=== PATIENT | female | born 1960 | race Caucasian/White ===

== ENCOUNTER 2020-05-02 07:33 | Outpatient (CLI) | payer OTHER, SELFPAY ==
--- NOTE | 2020-05-02 07:39 | MM_ITS ---
WS: [id number] Bilateral screening digital mammogram, 05/02/2020 Clinical Data: SCREENING Comparison: 04/30/2019, 04/27/2018, 04/26/2017, 04/20/2016, 04/16/2015, 08/07/2013, 04/18/2012, 1, 02/23/2010, 10/29/2008. Findings: The breast parenchymal pattern shows stranding density No spiculated masses or clustered calcificatio ns are seen. There are no secondary signs of carcinoma. Mole markers are noted on both breasts. MM/[id number] Impression: 1. Negative bilateral mammogram unchanged. 2. Recommend annual screening mammograms. BIRADS: 1-Negative FOLLOW UP: 1 Year Follow-up The CAD wash test checker was used.
== END 2020-05-02 07:34 | disposition home or self-care (01) ==
LOC: RADSHAW 07:38
PROVIDERS: Family Provider Family Medicine; PCP Family Medicine; Visit Provider Family Medicine
DX: Z12.31 Encounter for screening mammogram for malignant neoplasm of breast (principal)
CPT/HCPCS: 77067

== ENCOUNTER 2021-05-05 08:42 | Outpatient (CLI) | payer OTHER, SELFPAY ==
--- NOTE | 2021-05-05 08:48 | MM_ITS ---
WS: [id number] Exam: [id number] Date/Time of Exam: 05/05/2021 8:48 AM Reason For Exam: SCREENING VIEWS: MLO and CC views both breasts. Comparison made with prior exam of 05/02/2020 and 04/27/2018. Findings: There was no sign of mass, architectural distortion or suspicious calcification in either breast. Ve [place] dense MM/[place] [id number] Impression: BI-RADS: 2-Benign FOLLOW-UP: 1 Year Follow-up This mammogram was also analyzed by the Computer Aided Detection System [employer].
== END 2021-05-05 08:43 | disposition home or self-care (01) ==
LOC: RADSHAW 08:47
PROVIDERS: PCP Family Medicine; Visit Provider Family Medicine
DX: Z12.31 Encounter for screening mammogram for malignant neoplasm of breast (principal)
CPT/HCPCS: 77067

== ENCOUNTER 2022-05-28 10:53 | Outpatient (CLI) | payer OTHER, SELFPAY ==
--- NOTE | 2022-05-28 13:03 | MM_ITS ---
WS: [id number] BILATERAL 3D TOMOSYNTHESIS DIGITAL SCREENING MAMMOGRAM WITH CAD CLINICAL INFORMATION: SCREENING HISTORY: Screening mammogram. No current complaints. COMPARISON: 2020 TECHNIQUE: Bilateral CC and MLO. FINDINGS: The breast are composed of extremely dense tissue, which can limit the detection of small underlying mass lesions. No suspicious focal mass, asymmetry, calcifications, or architectural distortion. No ev idence of malignancy. MM/[place] [id number] IMPRESSION: BI-RADS: 1-Negative FOLLOW UP: 1 Year Follow-up Recommend return to annual screening mammography.
== END 2022-05-28 10:54 | disposition home or self-care (01) ==
LOC: RAD 10:55
PROVIDERS: PCP Family Medicine; Visit Provider Family Medicine
DX: Z12.31 Encounter for screening mammogram for malignant neoplasm of breast (principal)
CPT/HCPCS: 77063; 77067

== ENCOUNTER → 2023-08-11 14:48 | Outpatient (BNVA) | payer OTHER, SELFPAY | PROVIDERS: PCP Family Medicine; Visit Provider Family Medicine | DX: K62.5 Hemorrhage of anus and rectum (principal); K64.8 Other hemorrhoids | CPT/HCPCS: 80053; 85025 ==

== ENCOUNTER 2023-10-31 08:10 | Outpatient (CLI) | payer OTHER, SELFPAY ==
--- NOTE | 2023-10-31 08:15 | MM_ITS ---
WS: [id number] SCREENING DIGITAL BREAST TOMOSYNTHESIS MAMMOGRAM WITH CAD HISTORY: SCREENING COMPARISON: 05/28/2022, 05/05/2021 Bilateral CC and MLO with tomosynthesis and synthetic mammography submitted. Computer aided detection analyzed. Breast composition: The breasts are extremely dense, which lowers the sensitivity of mammography. The re is an asymmetry in the LEFT breast central to the nipple and just medial to the nipple line. This is a partially obscured asymmetry and may be normal variant dense fibroglandular tissue but should be further evaluated. There are a few benign calcifications. MM/[id number] IMPRESSION: BI-RADS: 0-Incomplete: Need additional imaging evaluation FOLLOW UP: Need Additional Imaging LEFT breast: Spot compression views (CC and MLO). True ML. Ultrasound to follow if abnormality persists.
== END 2023-10-31 08:11 | disposition home or self-care (01) ==
LOC: RAD 08:11
PROVIDERS: PCP Family Medicine; Visit Provider Family Medicine
DX: Z12.31 Encounter for screening mammogram for malignant neoplasm of breast (principal); R92.343 Mammographic extreme density, bilateral breasts; N64.89 Other specified disorders of breast; R92.1 Mammographic calcification found on diagnostic imaging of breast
CPT/HCPCS: 77063; 77067

== ENCOUNTER 2023-12-19 10:56 | Outpatient (CLI) | payer OTHER, SELFPAY ==
--- NOTE | 2023-12-19 11:11 | MM_ITS ---
WS: [id number] ADDITIONAL VIEWS LEFT MAMMOGRAM with tomosynthesis. LEFT BREAST ULTRASOUND HISTORY: abnormal screening mammogram COMPARISON: 10/31/2023, 05/28/2022, 05/05/2021 LEFT MAMMOGRAM: Spot compression views and true ML with tomosynthesis and sympathetic mammography. Very dense fibroglandular tissue. On additional imaging there is no obvious mass identified. No disto rtion. The breast tissue is very dense. Additional ultrasound evaluation will be performed in the are as of increased density. LEFT BREAST ULTRASOUND 2-D and color Doppler imaging submitted. Very dense fibroglandular tissue throughout the LEFT breast at 3, 6 and 9:00. There are no masses or areas of shadowing. MM/[id number] IMPRESSION: BI-RADS: 2-Benign FOLLOW UP: 1 Year Follow-up No persistent abnormality in the LEFT breast in the areas of concern on the scr eening mammogram.
== END 2023-12-19 10:57 | disposition home or self-care (01) ==
PROVIDERS: PCP Family Medicine; Visit Provider Family Medicine
DX: R92.8 Other abnormal and inconclusive findings on diagnostic imaging of breast (principal); R92.333 Mammographic heterogeneous density, bilateral breasts
CPT/HCPCS: 76642; 77061; G0279

== ENCOUNTER 2024-10-28 10:35 | Emergency (ER) | payer MEDICARE, OTHER, SELFPAY ==
[2024-10-28 10:54] VITALS: BP 148/82; PULSE 89; RESP 18; TEMP 36.7; O2SAT 100; BMI 28.1
--- NOTE | 2024-10-28 11:15 | CTR_ITS ---
PROCEDURE INFORMATION: Exam: CT Head Without Contrast Exam date and time: 10/28/2024 11:28 AM Age: 64 years old Clinical indication: Altered mental status/memory loss TECHNIQUE: Imaging protocol: Computed tomography of the head without contrast. Radiation optimization: All CT scans at this facility use at least one of these dose optimization techniques: automated exposure control; mA and/or kV adjustment per patient size (includes targeted exams where dose is matched to clinical indication); or iterative reconstruction. COMPARISON: No relevant prior studies available. RADIATION DOSE METRICS: Total DLP (mGy-cm): 1011.1 FINDINGS: Brain: Normal. No hemorrhage. Unremarkable white matter. No mass effect. Cerebral ventricles: No ventriculomegaly. Paranasal sinuses: Visualized sinuses are unremarkable. No fluid levels. Mastoid air cells: Visualized mastoid air cells are well aerated. Bones: Unremarkable. No acute fracture. Soft tissues: Unremarkable. CT/CT head wo con* [id number] IMPRESSION: No acute intracranial finding.
[2024-10-28 12:00] LABS: Alanine Aminotransferase 11 U/L (0-33); Albumin Level 4.4 g/dL (3.5-5.2); Alkaline Phosphatase 135 U/L (35-105); Anion Gap 17.2 (5-19); Aspartate Amino Transferase 17 U/L (0-32); Blood Urea Nitrogen 11 mg/dL (8-23); Calcium 9.7 mg/dL (8.5-10.5); Carbon Dioxide 23 mmol/L (22-29); Chloride 101 mmol/L (98-107); Creatinine Clr Calc Pharmacy 69.2568; Globulin 3.3 g/dL (1.3-4.6); Glomerular Filtration Rate 123.8 mL/min (90-130); Glucose 116 mg/dL (65-115); Osmolality Calculated 284 mOsm/kg (285-295); Potassium 4.2 mmol/L (3.5-5.1); Sodium 137 mmol/L (136-145); Thyroid Stimulating Hormone 0.51 uIU/mL (0.27-4.20); Total Bilirubin 0.8 mg/dL (0.15-1.2); Total Protein 7.7 g/dL (6.6-8.7)
[2024-10-28 12:04] LABS: Basophils # 0.1 10^3/uL (0.0-0.1); Basophils % 0.7 %; Eosinophils % 0.4 %; Hematocrit 39.8 % (36-47); Lymphocytes # 0.9 10^3/uL (0.8-4.8); Lymphocytes % 11.4 %; Mean Corpuscular Hemoglobin 31.1 pg (27-33); Mean Corpuscular Volume 90.9 fl (85-98); Mean Platelet Volume 11.3 fL (7.4-10.4); Monocytes # 0.6 10^3/uL (0.2-0.9); Monocytes % 7.4 %; Neutrophils # 6.54 10^3/uL (1.8-7.7); Neutrophils % 79.6 %; Nucleated Red Blood Cells % 0 %; Platelet Count 257 10^3/cmm (157-399); Red Blood Count 4.38 10^6/uL (3.85-5.65); Red Cell Distribution Width 12.8 % (12.1-15.1); White Blood Count 8.22 10^3/uL (3.29-11.43)
[2024-10-28 12:06] LABS: Bilirubin Urine Negative (Negative); Blood Urine Negative (Negative); Glucose Urine UA Negative (Normal); Ketones Urine 1+ (Negative); Leukocyte Esterase Urine Negative (Negative); Nitrate Urine Negative (Negative); Protein Urine Negative (Negative); Specific Gravity, Urine 1.008 (1.005-1.030); Urine Appearance Clear (CLEAR); Urine Color Yellow (Yellow); Urobilinogen Urine 0.2 mg/dL (Negative)
[2024-10-28 12:06] LABS: Mean Corpuscular HGB Conc 34.2 g/dL (30-55)
[2024-10-28 12:11] LABS: Add Urine Microscopic? YES; Bacteria Urine None Seen /hpf; Hyaline Casts Urine 0-4 /lpf; RBC Urine 0-2 /hpf (0-2); Squamous Epithelial Cell Urine 0-5 /hpf (0-5); WBC Urine 0-5 /hpf (0-5)
[2024-10-28 13:30] VITALS: BP 149/90; PULSE 81; O2SAT 96
[2024-10-28 13:48] VITALS: BP 149/90; PULSE 81; O2SAT 96
--- NOTE | 2024-10-28 16:59 | ED_ITS ---
HPI - Weakness 2 General: Chief complaint: Weakness Stated complaint: confusion, weakness Time Seen by Provider: 10/28/24 11:03 History of Present Illness: This patient is a 64-year-old white female who presents to the emergency department stating that she has been feeling weak for 1 week. She has not been sleeping well. She does not feel ill. She states she recently retired which may have caused some anxiety. She denies having any chronic medical problems. Review of Systems 2 General: Reports: 10 or more systems reviewed and unremarkable except in HPI and below Narrative: Generalized weakness Psych: Reports: anxiety and sleeping less Physical Exam 2 Const: COMMON NORMALS: no acute distress, patient oriented x3 and no limitations GENERAL APPEARANCE: cooperative and comfortable HENMT: COMMON NORMALS: normocephalic, atraumatic, Normal nasal mucous membranes and turbinates present, moist oral mucous membranes and oropharynx normal HEAD & SCALP: normal to inspection, normocephalic and atraumatic F RENAY & SINUS: normal facial exam NOSE: Normal nasal mucous membranes and turbinates present Eye: COMMON NORMALS: Equal, round and reactive pupils present, EOMs intact bilaterally and conjunctivae normal GENERAL EYE: appearance normal, both eyes and all related structures CONJUNCTIVA: Yes conjunctivae normal PUPIL: Yes Equal, round and reactive pupils present Neck/C-Spine: COMMON NORMALS: supple and no JVD Chest: COMMONS NORMALS: normal inspection of the chest Resp: COMMON NORMALS: normal respiratory effort and clear to auscultation bilaterally AUSCULTATION: clear to auscultation bilaterally Cardio: COMMON NORMALS: no JVD, regular rate, regular rhythm, No gallops present (Cardio), No murmurs present (Cardio) and No rub (Cardio) RATE: r egular rate RHYTHM: regular rhythm GI: COMMON NORMALS: Normal to inspection, nondistended, normoactive bowel sounds present, Soft to palpation and non-tender AUSCULTATION: Yes normoactive bowel sounds PALPATION: Yes Soft to palpation : COMMON NORMALS: Yes no CVA tenderness BLADDER/KIDNEY EXAM: Yes no CVA tenderness Back/Pelvis: COMMON NORMALS: no CVA tenderness and thoracic and lumbar spine normal to inspection Extremity: COMMON NORMALS: normal to inspection Neuro: COMMON NORMALS: patient oriented x3 and CN's II-XII intact bilaterally Psych: COMMON NORMALS: mental status grossly normal, Normal thought process present and cooperative ATTITUDE: Yes Withdrawn affect present A CTIVITY/MOTOR BEHAVIOR: Yes psychomotor slowing MOOD & AFFECT: Yes depressed mood THOUGHT PROCESS: Normal thought process present THOUGHT CONTENT: Yes Normal thought content present ATTENTION/CONCENTRATION: Yes attention grossly intact MEMORY/COGNITION: Yes memory grossly intact Skin: COMMON NORMALS: no rashes or lesions noted, turgor normal and no jaundice GENERAL SKIN EXAM: no rashes or lesions noted and turgor normal Course 2 Vital Signs: Vital signs: Vital Signs Temperature 98.1 F 10/28/24 10:54 Pulse Rate 81 10/28/24 13:48 Respiratory Rate 18 10/28/24 10:54 Blood Pressure 149/90 10/28/24 13:48 Pulse Oximetry 96 10/28/24 13:48 Oxygen Delivery Me thod Room Air 10/28/24 10:54 MDM - Weakness Medical Decision Making Head CT was read by the radiologist as normal. CBC and CMP were normal. TSH is 0.51. Urine analysis normal. I think the patient's symptoms are likely secondary to depression and anxiety. I offered to start her on an antidepressant but she would rather follow-up with her primary care provider with possible referral to psychiatry. She was discharged in stable condition. Lab Data 10/28/24 11:23 10/28/24 11:[address] 10/28/24 11:15 IMPRESSION: No acute intracranial finding. Laboratory Results WBC 8.22 10^3/uL (3.29-11.43) 10/28/24 11:23 RBC 4.38 10^6/uL (3.85-5.65) 10/28/24 11:23 Hgb 13.60 g/dL (11.27-16.99) 10/28/24 11:23 Hct 39.8 % (36-47) 10/28/24 11:23 MCV 90.9 fl (85-98) 10/28/24 11:23 MCH 31.1 pg (27-33) 10/28/24 11:23 MCHC 34.2 g/dL (30-55) 10/28/24 11:23 RDW 12.8 % (12.1-15.1) 10/28/24 11:23 Plt Count 257 10^3/cmm (157-399) 10/28/24 11:23 MPV 11.3 fL (7.4-10.4) H 10/28/24 11:23 Neut % (Auto) 79.6 % 10/28/24 11:23 Lymph % (Auto) 11.4 % 10/28/24 11:23 [place] % (Auto) 7.4 % 10/28/24 11:23 Eos % (Auto) 0.4 % 10/28/24 11:23 Baso % (Auto) 0.7 % 10/28/24 11:23 Neut # (Auto) 6.54 10^3/uL (1.8-7.7) 10/28/24 11:23 Lymph # (Auto) 0.9 10^3/uL (0.8-4.8) 10/28/24 11:23 [place] # (Auto) 0.6 10^3/uL (0.2-0.9) 10/28/24 11:23 Eos # (Auto) 0.0 10^3/uL (0.0-0.8) 10/28/24 11:23 Baso # (Auto) 0.1 10^3/uL (0.0-0.1) 10/28/24 11:23 Nucleated RBC % (auto) 0 % 10/28/24 11:23 Nucleated RBCs # 0.0 /100WBC 10/28/24 11:23 Sodium 137 mmol/L (136-145) 10/28/24 11:23 Potassium 4.2 mmol/L (3.5-5.1) 10/28/24 11:23 Chloride 101 mmol/L (98-107) 10/28/24 11:23 Carbon Dioxide 23 mmol/L (22-29) 10/28/24 11:23 Anion Gap 17.2 (5-19) 10/28/24 11:23 BUN 11 mg/dL (8-23) 10/28/24 11:23 Creatinine 0.5 mg/dL (0.5-0.9) 10/28/24 11:23 GFR Calculation 123.8 mL/min (90-130) 10/28/24 11:23 Glucose 116 mg/dL (65-115) H 10/28/24 11:23 Calculated Osmolality 284 mOsm/kg (285-295) L 10/28/24 11:23 Calcium 9.7 mg/dL (8.5-10.5) 10/28/24 11:23 Total Bilirubin 0.8 mg/dL (0.15-1.2) 10/28/24 11:23 AST 17 U/L (0-32) 10/28/24 11:23 ALT 11 U/L (0-33) 10/28/24 11:23 Alkaline Phosphatase 135 U/L (35-105) H 10/28/24 11:23 Total Protein 7.7 g/dL (6.6-8.7) 10/28/24 11:23 Albumin 4.4 g/dL (3.5-5.2) 10/28/24 11:23 Globulin 3.3 g/dL (1.3-4.6) 10/28/24 11:23 TSH 0.51 uIU/mL (0.27-4.20) 10/28/24 11:23 Urine Color Yellow (Yellow) 10/28/24 11:42 Urine Appearance Clear (CLEAR) 10/28/24 11:42 Urine pH 6.0 (5-7) 10/28/24 11:42 Ur Specific [place] 1.008 (1.005-1.030) 10/28/24 11:42 Urine Protein Negative (Negative) 10/28/24 11:42 Urine Glucose (UA) Negative (Normal) 10/28/24 11:42 Urine Ketones 1+ (Negative) H 10/28/24 11:42 Urine Blood Negative (Negative) 10/28/24 11:42 Urine Nitrate Negative (Negative) 10/28/24 11:42 Urine Bilirubin Negative (Negative) 10/28/24 11:42 Urine Urobilinogen 0.2 mg/dL (Negative) 10/28/24 11:42 Ur Leukocyte Esterase Negative (Negative) 10/28/24 11:42 Urine RBC 0-2 /hpf (0-2) 10/28/24 11:42 Urine WBC 0-5 /hpf (0-5) 10/28/24 11:42 Ur Squamous Epith Cells 0-5 /hpf (0-5) 10/28/24 11:42 Amorphous Sediment Not Reportable 10/28/24 11:42 Urine Bacteria None seen /hpf (NONE) 10/28/24 11:42 Hyaline Casts 0-4 /lpf H 10/28/24 11:42 All radiology interpretation(s) finalized by discharge Discharge Plan Discharge Patient Disposition: Home Clinical Impression: Generalized weakness, Anxiety Condition: Stable Prescriptions: No Action No Known Home Medications Discharge Orders: Discharge ED (Routine); Ordered 10/28/24 Ordered By: Jhoan Chávez Patient Instructions: Anxiety (ED), Weakness (Generalized) Activity Restrictions/Additional Instructions: Follow-up with your primary care provider for ongoing workup and management. Print Language: Angolan Coding Level of Care Code ED [employer] for Chg Fwd Related Data Home Medications ?Medication ?Instructions ?Recorded ?Confirmed No Known Home Medications 03/28/2307/15 Allergies Allergy/AdvReac Type Severity Reaction Status Date / Time amoxicillin Allergy Mild ADR-Diarrhe Verified 02/16/24 08:31 a
== END 2024-10-28 13:49 | disposition home or self-care (01) ==
PROVIDERS: Emergency Provider Emergency Medicine
DX: R53.1 Weakness (principal); F41.9 Anxiety disorder, unspecified
CPT/HCPCS: 36415; 70450; 80053; 81001; 84443; 85025; 99284

== ENCOUNTER 2025-02-08 13:27 | Outpatient (CLI) | payer MEDICARE, OTHER, SELFPAY ==
--- NOTE | 2025-02-08 | MM_ITS ---
WS: [id number] BILATERAL 3D TOMOSYNTHESIS DIGITAL SCREENING MAMMOGRAM WITH CAD CLINICAL INFORMATION: ANNUAL SCREENING HISTORY: Screening mammogram. No current complaints. COMPARISON: 2023 TECHNIQUE: Bilateral CC and MLO. FINDINGS: The breast are composed of extremely dense tissue, which can limit the detection of small underlying mass lesions. No suspicious focal mass, asymmetry, calcifications, or architectural distortion. No evidence of malignancy. Benign calcifications RIGHT breast MM/MM scr tomosynthesis [id number] IMPRESSION: DENSITY: The breasts are extremely dense, which lowers the sensitivity of mammo graphy. BI-RADS: 2 - Benign FOLLOW UP: 1 Year Follow-up Recommend return to annual screening mammography.
== END 2025-02-08 13:28 | disposition home or self-care (01) ==
LOC: RAD 13:29
PROVIDERS: PCP Family Medicine; Visit Provider Family Medicine
DX: Z12.31 Encounter for screening mammogram for malignant neoplasm of breast (principal); R92.313 Mammographic fatty tissue density, bilateral breasts; R92.1 Mammographic calcification found on diagnostic imaging of breast
CPT/HCPCS: 77063; 77067